=== PATIENT | female | born 1955 | race Caucasian/White ===

== ENCOUNTER 2017-12-30 04:18 | Emergency (ER) | payer OTHER ==
[~2017-12-30] VITALS: Ht 175.3 cm; Wt 67.9 kg
[2017-12-30 04:20] VITALS: BP 137/72; PULSE 76; RESP 20; TEMP 97.7; O2SAT 99
[2017-12-30] MEDS ORDERED: SODIUM CHLOR 0.9% 1000 ML INJ 1,000 ML IV ONE (04:34)
--- NOTE | 2017-12-30 04:38 | PD ---
HPI Chief Complaint: Complaint Time Seen by Provider: 04:34 Travel History International Travel<30 days: No Contact w/Intl Traveler<30days: No Traveled to known affect area: No History of Present Illness HPI 62-year-old female presents to the emergency department by private transportation in the care of her spouse for evaluation of 2 hours of severe bladder pain and bladder spasm with dysuria. Patient took Pyridium this evening prior to arrival to the emergency department. Patient states symptoms have not been relieved. Patient recently completed a 10 day course of antibiotic 2 weeks ago for urinary tract infection. Patient denies fever chills vomiting generalized abdominal pain flank pain and diarrhea no report of vaginal discharge or vaginal bleeding. Patient is status post hysterectomy. Patient has had some nausea. Patient thought her nausea was related to taking Pyridium on an empty stomach. Patient cannot remember the last antibiotic that she was prescribed but did not tolerate Bactrim as it caused her GI distress. Patient rates her pain 10/10 intensity. PFSH Past Medical History Narrative Medical UTI hysterectomy tobacco use nursing notes reviewed Social History Tobacco Use: Yes Allergies-Medications (Allergen,Severity, Reaction): Coded Allergies: morphine (Verified Allergy, Severe, Hives, 12/30/17) sulfamethoxazole (Verified Adverse Reaction, Severe, 12/30/17) NAUSEA trimethoprim (Verified Adverse Reaction, Severe, 12/30/17) NAUSEA Reported Meds & Prescriptions Reported Meds & Active Scripts Active No Active Prescriptions or Reported Medications Narrative Medication Pyridium Review of Systems Except as stated in HPI: all other systems reviewed are Neg General / Constitutional: No: Fever, Chills HENT: No: Congestion Cardiovascular: No: Chest Pain or Discomfort Respiratory: No: Shortness of Breath Gastrointestinal: Positive: Nausea, Abdominal Pain, No: Vomiting, Diarrhea Genitourinary: Positive: Urgency, Frequency (Suprapubic pressure), Dysuria, Other ("bladder pain") Musculoskeletal: No: Myalgias, Arthralgias Skin: No Rash Psychiatric: No: Anxiety Hematologic/Lymphatic: No: Lymph Node Enlargement Physical Exam Narrative GENERAL: Well-developed well-nourished female in obvious discomfort no respiratory distress SKIN: Warm and dry. HEAD: Normocephalic. EYES: No scleral icterus. No injection or drainage. NECK: Supple, trachea midline. No JVD or lymphadenopathy. CARDIOVASCULAR: Regular rate and rhythm without murmurs, gallops, or rubs. RESPIRATORY: Breath sounds equal bilaterally. No accessory muscle use. GASTROINTESTINAL: Abdomen soft, suprapubic tenderness to direct palpation with voluntary guarding no rebound, nondistended. MUSCULOSKELETAL: No cyanosis, or edema. BACK: Nontender without obvious deformity. No CVA tenderness. Data Data Last Documented VS Vital Signs Date Time Temp Pulse Resp B/P (MAP) Pulse Ox O2 Delivery O2 Flow Rate FiO2 12/30/17 04:36 76 18 12/30/17 04:20 97.7 137/72 (93) 99 Orders Orders Complete Blood Count With Diff (12/30/17 04:34) Basic Metabolic Panel (Bmp) (12/30/17 04:34) Urinalysis - C+S If Indicated (12/30/17 04:34) Ecg Monitoring (12/30/17 04:34) Iv Access Insert/Monitor (12/30/17 04:34) Ketorolac Inj (Toradol Inj) (12/30/17 04:45) Ondansetron Inj (Zofran Inj) (12/30/17 04:45) Sodium Chloride 0.9% Flush (Ns Flush) (12/30/17 04:45) Sodium Chlor 0.9% 1000 Ml Inj (Ns 1000 M (12/30/17 04:34) Urine Culture (12/30/17 04:35) Ceftriaxone Inj (Rocephin Inj) (12/30/17 05:45) Oxycodone-Acetamin 5-325 Mg (Percocet (12/30/17 05:45) Ed Discharge Order (12/30/17 05:41) Labs Laboratory Tests Test 12/30/17 04:35 White Blood Count 12.6 TH/MM3 Red Blood Count 4.48 MIL/MM3 Hemoglobin 14.1 GM/DL Hematocrit 41.0 % Mean Corpuscular Volume 91.5 FL Mean Corpuscular Hemoglobin 31.6 PG Mean Corpuscular Hemoglobin Concent 34.5 % Red Cell Distribution Width 12.3 % Platelet Count 273 TH/MM3 Mean Platelet Volume 7.7 FL Neutrophils (%) (Auto) 61.9 % Lymphocytes (%) (Auto) 27.5 % Monocytes (%) (Auto) 6.3 % Eosinophils (%) (Auto) 3.4 % Basophils (%) (Auto) 0.9 % Neutrophils # (Auto) 7.8 TH/MM3 Lymphocytes # (Auto) 3.5 TH/MM3 Monocytes # (Auto) 0.8 TH/MM3 Eosinophils # (Auto) 0.4 TH/MM3 Basophils # (Auto) 0.1 TH/MM3 CBC Comment DIFF FINAL Differential Comment Urine Color ORANGE Urine Turbidity CLEAR Urine pH 6.0 Urine Specific [place] 1.005 Urine Protein TRACE mg/dL Urine Glucose (UA) 100 mg/dL Urine Ketones NEG mg/dL Urine Occult Blood LARGE Urine Nitrite POS Urine Bilirubin NEG Urine Leukocyte Esterase MOD Urine RBC 10-14 /hpf Urine WBC 50-99 /hpf Urine WBC Clumps FEW Urine Squamous Epithelial Cells 0-5 /hpf Urine Bacteria RARE /hpf Microscopic Urinalysis Comment CULTURE INDICATED Blood Urea Nitrogen 12 MG/DL Creatinine 0.80 MG/DL Random Glucose 103 MG/DL Calcium Level 9.3 MG/DL Sodium Level 137 MEQ/L Potassium Level 4.1 MEQ/L Chloride Level 105 MEQ/L Carbon Dioxide Level 25.5 MEQ/L Anion Gap 7 MEQ/L Estimat Glomerular Filtration Rate 73 ML/MIN [facility] Medical Decision Making Medical Screen Exam Complete: Yes Emergency Medical Condition: Yes Medical Record Reviewed: Yes Interpretation(s) Vital Signs Date Time Temp Pulse Resp B/P (MAP) Pulse Ox O2 Delivery O2 Flow Rate FiO2 12/30/17 04:36 76 18 12/30/17 04:20 97.7 76 20 137/72 (93) 99 CBC & BMP Diagram 12/30/17 04:35 Calcium Level 9.3 Vital Signs Date Time Temp Pulse Resp B/P (MAP) Pulse Ox O2 Delivery O2 Flow Rate FiO2 12/30/17 04:36 76 18 12/30/17 04:20 97.7 76 20 137/72 (93) 99 UA: Positive nitrites and WBCs clump WBCs bacteria culture indicated Differential Diagnosis UTI, hemorrhagic cystitis, renal colic, obstructive uropathy Narrative Course IV access obtained specimens collected and sent for resulting patient administered 1 L normal saline Toradol 30 mg IV Zofran 4 mg IV Patient with abnormal urinalysis first dose of antibiotic administered as Rocephin 1 g IV piggyback Patient notes some clinical improvement after Toradol IV fluids and Zofran Patient is stable for outpatient management will be discharged with prescription for Percocet 5/325, Pyridium, Cipro 500 twice daily, as needed Phenergan Diagnosis Primary Impression: UTI (urinary tract infection) Qualified Codes: N30.01 - Acute cystitis with hematuria Referrals: Primary Care Physician 2 days Patient Instructions: Narcotic given in the ED, General Instructions Additional Instructions: Increase fluid hydration Complete course of antibiotic as prescribed Follow-up with your primary care provider Return to the emergency department for any concerns or change in condition May take Percocet as prescribed as needed for pain beware narcotic medications can impair judgment, delayed reaction time, increased risk for fall, cause constipation Take Phenergan as prescribed as needed for nausea and/or vomiting Med/Other Pt SpecificInfo: Prescription(s) given Scripts Phenazopyridine (Pyridium) 100 Mg Tab 100 MG PO Q8H Y for DYSURIA, #6 TAB 0 Refills Prov: Linnea Perez MD 12/30/17 Oxycodone-Acetaminophen (Percocet) 5-325 mg Tab 1 TAB PO Q6H Y for PAIN, #7 TAB 0 Refills Prov: Linnea Perez MD 12/30/17 Promethazine (Phenergan) 25 Mg Tablet 25 MG PO Q6H Y for NAUSEA OR VOMITING, #7 TAB 0 Refills Prov: Linnea Perez MD 12/30/17 Ciprofloxacin (Cipro) 500 Mg Tab 500 MG PO BID for Infection for 7 Days, #14 TAB 0 Refills Prov: Linnea Perez MD 12/30/17 Disposition: 01 DISCHARGE HOME Condition: Stable Linnea Perez MD Dec 30, 2017 04:38
[2017-12-30] MEDS ORDERED: ONDANSETRON HCL 4 MG/2 ML VIAL IV PUSH ONE (04:45)
[2017-12-30] MEDS ORDERED: KETOROLAC TROMETHAMINE 30 MG/ML (IVP) VIAL IV PUSH ONE (04:45)
[2017-12-30] MEDS ORDERED: SODIUM CHLORIDE 0.9% FLUSH 10 ML FLUSH IVF PRN (04:45)
[2017-12-30 04:58] LABS: AUTOMATED NEUTROPHIL # 7.8 TH/MM3 (1.8-7.7); BASOPHIL # 0.1 TH/MM3 (0-0.2); BASOPHIL % 0.9 % (0.0-2.0); EOSINOPHIL # 0.4 TH/MM3 (0-0.4); EOSINOPHIL % 3.4 % (0.0-4.0); HEMOGLOBIN 14.1 GM/DL (11.6-15.3); LYMPH % 27.5 % (9.0-44.0); LYMPHOCYTE # 3.5 TH/MM3 (1.0-4.8); MEAN CELL VOLUME 91.5 FL (80.0-100.0); MEAN CORPUSCULAR HEMOGLOBIN 31.6 PG (27.0-34.0); MEAN CORPUSCULAR HGB CONC 34.5 % (32.0-36.0); MEAN PLATELET VOLUME 7.7 FL (7.0-11.0); MONO % 6.3 % (0.0-8.0); MONOCYTE # 0.8 TH/MM3 (0-0.9); NEUT % 61.9 % (16.0-70.0); PLATELET COUNT 273 TH/MM3 (150-450); RED BLOOD COUNT 4.48 MIL/MM3 (4.00-5.30); RED CELL DISTRIBUTION WIDTH 12.3 % (11.6-17.2); WHITE BLOOD COUNT 12.6 TH/MM3 (4.0-11.0)
[2017-12-30 05:08] LABS: CALCIUM 9.3 MG/DL (8.5-10.1)
[2017-12-30 05:09] LABS: BICARBONATE 25.5 MEQ/L (21.0-32.0)
[2017-12-30 05:12] LABS: CREATININE 0.8 MG/DL (0.50-1.00)
[2017-12-30 05:18] LABS: BILIRUBIN, URINE NEG (NEG); BLOOD, URINE LARGE (NEG); GLUCOSE,URINE 100 mg/dL (NEG); KETONE, URINE NEG (NEG); NITRITE,URINE POS (NEG); URINE LEUKOCYTE ESTERASE MOD (NEG)
[2017-12-30 05:27] LABS: URINE COLOR ORANGE (YELLW/STRAW)
[2017-12-30 05:29] LABS: BACTERIA, URINE RARE /hpf; SQUAMOUS EPITHELIAL CELL URINE 0-5 /hpf (0-5); WHITE BLOOD CELL CLUMPS FEW
[2017-12-30] MEDS ORDERED: PROM25TA10 PO (05:45)
[2017-12-30] MEDS ORDERED: cefTRIAXone INJ 1,000 MG in SODIUM CHLORIDE 0.9% INJ 100 ML IV ONE (05:45)
[2017-12-30] MEDS ORDERED: PERC5TAB12 PO (05:45)
[2017-12-30] MEDS ORDERED: CIPR-9 PO (05:45)
[2017-12-30] MEDS ORDERED: oxyCODONE/ACETAMINOPHEN 5 MG/325 MG TAB PO ONE (05:45)
[2017-12-30] MEDS ORDERED: PHEN0.4T PO (05:45)
[2017-12-30 06:20] VITALS: BP 138/78; PULSE 76; RESP 18; O2SAT 97
== END 2017-12-30 06:45 | disposition home or self-care (01) ==
LOC: PHED 04:18
DX: N30.01 Acute cystitis with hematuria (principal); Z72.0 Tobacco use; Z88.2 Allergy status to sulfonamides; Z88.5 Allergy status to narcotic agent
CPT/HCPCS: 80048; 81001; 85025; 87086; 96361; 96374; 96375; 99284; J0696; J1885; J2405; J7030